=== PATIENT | female | born 1955 | race Caucasian/White ===

== ENCOUNTER → 2016-09-15 | Outpatient (CLI) | payer BC ==
[~2016-09-15] MED LIST: ALLEGRA PO; ASPIRIN PO; BENICAR HCT 40-1 TA1 PO; BYSTOLIC PO; BYSTOLIC10 MG PO; CALCIUM PO; CALCIUM500 MG PO; CARAFATE PO; CERTAGEN PO; ESTROVEN PO; MOBIC PO; NEXIUM PO; NIACIN PO; NORVASC PO; PRISTIQ PO; PRISTIQ50 MG PO; PROTONIX PO; VIT B-12 PO; VITAMIN C PO; ZETIA PO
--- NOTE | ~2016-09-15 | CT113 ---
[facility] A Service of [facility] RADIOLOGY TEXT RESULTS PATIENT: BRITTNEY AGUIRRE LOCATION: [facility] : 57 UNIT #: [id number] AGE: [address]: Nancy Chandler MD SEX: F ORDER DR: [id number] [facility]. [place], [place] [address] [id number] O MR#: [id number] Acc #: [id number] NAME: BRITTNEY AGUIRRE : 1955 SEX: F STUDY DATE/TIME: 09/15/2016 8:50 UNIT: [facility]AT ROOM: STUDY DESCRIPTION: CT Sinuses Wo Contrast Attending Physician: Nancy Chandler M.D. Referring Physician: Nancy Chandler M.D. Ordering Physician: Nancy Chandler M.D. Primary Care Physician: Nancy Chandler M.D. MEDICAL IMAGING REPORT This report is preliminary unless electronic signature is present EXAM Sinus CT no contrast, 09/15/2016 PROCEDURE Axial unenhanced sinus CT with multiplanar reformats. This CT exam was performed with one or more of the following radiation dose reduction techniques: automatic exposure control, adjustment of mA and/or kV according to patient size, and iterative reconstruction. COMPARISON None HISTORY One year history of anosmia and sinus drainage FINDINGS There is no evidence of active mucosal disease in the frontal sinuses, maxillary sinuses, ethmoid air cells or sphenoid chambers. The nasal septum bows leftward but there is no spur. There is no bone erosion or destruction or other acute process, and the adjacent soft tissue structures are normal. IMPRESSION Normal negative paranasal sinus CT. Dictated by... Benja Ma M.D. THIS IS AN ELECTRONICALLY VERIFIED REPORT [facility] A Service [facility] RADIOLOGY TEXT RESULTS PATIENT: BRITTNEY AGUIRRE LOCATION: [facility] : 57 UNIT #: [id number] AGE: [address]: Nancy Chandler MD SEX: F ORDER DR: Benja Ma M.D. at 09/16/2016 1:46 PM LILIAN/sorin TD: 09/16/2016 10:17 JOB #: [id number] MEDICAL IMAGING REPORT Page 1 of 1 COPY
== END | disposition home or self-care (01) ==
LOC: CCAT 08:07
DX: J30.9 Allergic rhinitis, unspecified (principal)
CPT/HCPCS: 70486